=== PATIENT | male | born 1955 | race Caucasian/White ===

== ENCOUNTER 2018-09-12 08:58 | Emergency (ER) | payer MEDICARE, BC ==
[~2018-09-12] VITALS: Ht 177.8 cm; Wt 85.0 kg
--- NOTE | 2018-09-12 09:12 | NUR ---
PT. ARRIVES BY [facility] WITH C/O A MGLF AFTER DRINKING ETOH STATES BY THE PT. PT. DENIES LOC WITH THE FALL. PT. SUSTAINED A 2CM LACERATION TO THE BACK OF HIS HEAD WITH THE FALL. PT. DENIES SANTOS PAIN. PT.'S WOUND IS OOZING BLOOD. SITE CLEANSED AND GAUZE APPLIED, BLEEDING CONTROLLED. PT. HAS BLOOD ON HIS FACE AND CHEST, SKIN CARE WAS GIVEN AND THE BLOOD WAS REMOVED. PT. IS A & O X 4 WITH A GSC OF 15. PUPILS ARE PERRLA. LUNGS ARE CTA. MM ARE PINK AND MOIST WITH PULSES +2 THROUGHOUT. CAP REFILL IS BRISK, LESS THAN 3 SECONDS. PT.'S ABD. IS SOFT AND FLAT WITH BS + X 4 QUADS. PT. HAS THE CP MONITOR IN PLACE. VSS. PT. HAS NS INFUSING WIDE OPEN. SIDERAILS REMAIN UP X 2 WITH THE CALL LIGHT IN PLACE. PT. STATES HIS LAST DRINK WAS WITHIN THE HOUR. PT. WAS INSTRUCTED TO NOT GET UP WITHOUT ASKING FOR ASSISTANCE. PT. HAS A URINAL AT THE BEDSIDE. PT. HAS A BLANKET IN PLACE FOR WARMTH. PT.'S HOB IS ELEVATED GREATER THAN 30 DEGREES.
--- NOTE | 2018-09-12 09:23 | NUR ---
PT. RATES HIS PAIN A 3/10. PT. IS RESTING COMFORTABLY ON THE GURNEY, INTERMITTENTLY DOZING OFF. PT. AWAKENS EASILY TO VERBAL STIMULI AND ANSWERS QUESTIONS APPROPIATELY. PT.'S VITALS ARE STABLE.
[2018-09-12] MEDS ORDERED: PLEASE ENTER ALLERGIES MC SCH (09:30)
[2018-09-12] MEDS ORDERED: SODIUM CHLORIDE 0.9% 1,000ML IVBOLUS ONE (09:30)
--- NOTE | 2018-09-12 09:46 | NUR ---
PT. WAS TAKEN TO CT SCAN.
--- NOTE | 2018-09-12 09:53 | NUR ---
REPORT GIVEN TO REBECCA LEI.
--- NOTE | 2018-09-12 09:59 | NUR ---
LABS OBTAINED. PT. REMAINS MONITORED. VSS. SIDERAILS ARE UP X 2 WITH THE CALL LIGHT IN PLACE.
[2018-09-12 10:19] LABS: BASOPHILS # (AUTO) 0.03 x10^3/uL (0-0.1); BASOPHILS % (AUTO) 0 % (0-1); EOSINOPHILS # (AUTO) 0.06 x10^3/uL (0-0.4); EOSINOPHILS % (AUTO) 1 % (1-7); LYMPHOCYTES # (AUTO) 1.32 x10^3/uL (1-3.4); LYMPHOCYTES % (AUTO) 21 % (22-44); MD NO; MEAN CORPUSCULAR HEMOGLOBIN 32.2 pg (27.5-34.5); MEAN CORPUSCULAR HGB CONC 33.7 g/dL (33.2-36.2); MEAN CORPUSCULAR VOLUME 95.3 fL (81-97); MEAN PLATELET VOLUME 7.3 fL (7.4-10.4); MONOCYTES # (AUTO) 0.38 x10^3/uL (0.2-0.8); MONOCYTES % (AUTO) 6 % (2-9); NEUTROPHILS # (AUTO) 4.65 x10^3/uL (1.8-6.8); NEUTROPHILS % (AUTO) 72 % (42-75); PLATELET COUNT 225 x10^3/uL (130-400); RED BLOOD COUNT 4.58 x10^6/uL (4.38-5.82); RED CELL DISTRIBUTION WIDTH 13.1 % (9.4-14.8)
[2018-09-12 10:44] LABS: ALBUMIN 3.7 g/dL (3.4-5.0); ANION GAP 11 mmol/L (5-15); CALCIUM 8.1 mg/dL (8.5-10.1); CHLORIDE 106 mmol/L (98-107)
[2018-09-12 10:46] LABS: CREATININE 1.15 mg/dL (0.7-1.3)
[2018-09-12 11:24] VITALS: BP 145/89
--- NOTE | 2018-09-12 11:24 | NUR ---
RESTING AND AWAITING DISPO
--- NOTE | 2018-09-12 12:15 | NUR ---
PT UOB TO USE URINAL AND TANGLED IN MONITOR CABLES. ASSISTED BACK TO [facility]. NOTED TO BE UNSTEADY. PT GIVEN CALL LIGHT AND INSTRUCTED NOT TO GET OUT OF BED WITHOUT ASSISTANCE
--- NOTE | 2018-09-12 12:59 | NUR ---
PROVIDED LUNCH TRAY
--- NOTE | 2018-09-12 13:08 | NUR ---
Report recieved. pt ambulated steadily to bathroom.
--- NOTE | 2018-09-12 13:56 | NUR ---
AMBULATED TO DISCHARGE WINDOW, STEADY GAIT.
== END 2018-09-12 13:58 | disposition home or self-care (01) ==
LOC: ED 12:12
DX: S01.91XA Laceration without foreign body of unspecified part of head, initial encounter (principal); E11.65 Type 2 diabetes mellitus with hyperglycemia; W01.198A Fall on same level from slipping, tripping and stumbling with subsequent striking against other object, initial encounter; Y93.89 Activity, other specified; Y92.410 Unspecified street and highway as the place of occurrence of the external cause; Y99.8 Other external cause status
CPT/HCPCS: 12001; 36415; 70450; 72125; 80048; 82040; 85025; 96360; 99284; J7030

== ENCOUNTER 2018-09-22 06:10 | Emergency (ER) | payer MEDICARE, BC ==
[~2018-09-22] VITALS: Ht 182.9 cm; Wt 76.0 kg
[2018-09-22 06:12] VITALS: BP 129/78
== END 2018-09-22 06:34 | disposition home or self-care (01) ==
LOC: ED 06:24
DX: S01.01XD Laceration without foreign body of scalp, subsequent encounter (principal); E11.65 Type 2 diabetes mellitus with hyperglycemia; X58.XXXD Exposure to other specified factors, subsequent encounter
CPT/HCPCS: 99282

== ENCOUNTER 2019-02-14 08:04 | Emergency (ER) | payer MEDICARE, BC ==
[~2019-02-14] VITALS: Ht 180.3 cm; Wt 80.0 kg
[2019-02-14 08:09] VITALS: BP 131/69
--- NOTE | 2019-02-14 08:20 | NUR ---
pt refuses nasal canula o2. 88-90% on room air.
--- NOTE | 2019-02-14 08:20 | NUR ---
pt wishes to leave upon arrival. i will evaluate his steadiness of ambulation. he is calling a friend to come pick him up.
--- NOTE | 2019-02-14 08:22 | NUR ---
[facility] is at the bedside for assessment
[2019-02-14] MEDS ORDERED: DIPH,PERTUSS(ACELL),TET VAC/PF 0.5 ML IM-VACC ONE ×2 (08:30→08:34)
--- NOTE | 2019-02-14 08:56 | NUR ---
pt to ct with tech
--- NOTE | 2019-02-14 09:40 | NUR ---
pt has become impatient beyond repair. he has removed his piv, and eloped. steady ambulation demonstrated prior to elopement. he was to remain in room for md to educate further in regard to blood glucose control. pt stated that " i will stop drinking so much soda." no further treatment possible at this time, as the pt has left the ER without assistance.
== END 2019-02-14 09:45 | disposition left against medical advice (07) ==
LOC: ED 09:40
DX: S09.90XA Unspecified injury of head, initial encounter (principal); F10.10 Alcohol abuse, uncomplicated; X58.XXXA Exposure to other specified factors, initial encounter; Y93.89 Activity, other specified; Y92.89 Other specified places as the place of occurrence of the external cause; Y99.8 Other external cause status
CPT/HCPCS: 70450; 72125; 90471; 90715; 99284

== ENCOUNTER 2019-10-21 18:01 | Emergency (ER) | payer MEDICARE, BC ==
[~2019-10-21] VITALS: Ht 182.9 cm; Wt 34.3 kg
[2019-10-21 18:14] VITALS: BP 143/82
--- NOTE | 2019-10-21 19:01 | NUR ---
not in lobby
--- NOTE | 2019-10-21 19:17 | NUR ---
PT NOT IN LOBBY WHEN CALLED.
--- NOTE | 2019-10-21 19:49 | NUR ---
not in lobby
== END 2019-10-21 19:59 | disposition left against medical advice (07) ==
LOC: ED 18:30
DX: M54.6 Pain in thoracic spine (principal)
CPT/HCPCS: 72072; 99283